=== PATIENT | male | born 1965 | race Caucasian/White ===

== ENCOUNTER 2022-12-26 23:13 | Emergency (ER) | payer OTHER, SELFPAY ==
[2022-12-26 23:20] VITALS: BP 180/100; PULSE 78; RESP 20; TEMP 36.7; O2SAT 99; BMI 32.5
--- NOTE | 2022-12-27 00:03 | ED.GENADULT ---
HPI - General Adult General Time Seen by Provider: 00:03 Date Seen: 12/27/22 Chief complaint: Lower Extremity Swelling Stated complaint: Left Foot Swelling, pain, redness Time Seen by Provider: 12/26/22 23:22 Source: patient Mode of arrival: ambulatory Limitations: no limitations History of Present Illness HPI narrative: 57-year-old male who comes in today with left foot pain. Patient noted some pain on the back of the left foot for the last couple of days. He initially thought this might be related to some back problems that and lumbar radiculopathy. Denies fever, chills, nausea, vomiting. Has not been taking anything for this. He was seen by Orthopedics today for his back pain and prescribed steroid which is not yet started. Had a fall couple weeks ago but does not feel that this is related to the fall. Related Data Home Medications Medication Instructions Recorded Confirmed citalopram 20 mg tablet 20 mg PO DAILY 12/26/22 12/26/22 omeprazole 20 mg capsule,delayed 20 mg PO DAILY 12/26/22 12/26/22 release tramadol 50 mg tablet 50 mg PO Q6H PRN pain 12/26/22 12/26/22 Allergies Allergy/AdvReac Type Severity Reaction Status Date / Time No Known Drug Allergies Allergy Verified 12/26/22 23:24 Review of Systems Status of ROS: Reports: 10 or more systems reviewed and unremarkable except as noted in History and below [facility] Medical History (Updated 12/27/22 @ 00:11 by Sandeep Marlow MD) Anxiety Surgical History (Updated 12/27/22 @ 00:00 by Agustin Sommers RN) H/O gastric sleeve Social History Smoking Status: Never smoker Do you use any of these nicotine containing products: None Second hand tobacco smoke exposure: No How often do you have a drink containing alcohol: never How often do you have six or more drinks on one occasion: Never AUDIT-C Alcohol total score: 0 Non-prescribed substance use: denies use Exam Narrative: Exam Narrative: General: well nourished , NAD Head: Atraumatic and normocephalic ENT: External ears and external nose are normal Eyes: Conjunctiva clear, pupils are equal reactive, external ocular motions are intact Neck: Full spontaneous range of motion of the neck Lungs: No respiratory distress Musculoskeletal: Tenderness and mild swelling on the dorsum of the left foot overlying the 1st metatarsal. Mild redness of the great toe along the nail with no marked tenderness or drainage. Tenderness extends along the great toe extensor to the ankle. Marked pain with resisted great toe extension or passive ankle plantar flexion. Neurologic: No gross focal neurologic deficits Skin: No rashes Psych: Mood and affect are appropriate Const: Vital Signs, click to edit/add: Vital Signs - 24 hr 12/26/22 23:20 Temperature 98.0 F Pulse Rate [Right Pulse Oximeter] 78 Respiratory Rate 20 Blood Pressure [Ri ght Upper Arm] 180/100 H Pulse Oximetry 99 Oxygen Delivery Me thod Room Air Course Course Hospital Course: Patient seen examined, prior records reviewed. Patient presents with left foot pain. Pain is on the dorsum of the foot medially with marked tenderness along the extensor hallucis longus tendon. No redness or warmth to suggest infectious tenosynovitis. No swelling, redness, warmth, or pain with passive movement at the MTP joint to suggest gout/crystal arthropathy or septic arthritis. There is some slight redness and tenderness along the medial distal nail but no diya paronychia. Given pain along with tendon and pain with passive ankle flexion strict in the tendon, and with resisted great toe dorsiflexion, symptoms are most consistent with tendinitis of the extensor hallucis longus. Patient will be placed in a walking boot. He is starting a steroid for his back and that should help this inflammation as well. Follow-up with primary care next week. Vital Signs Vital signs: Initial Vital Signs Temperature 98.0 F 12/26/22 23:20 Temperature Source Temporal Artery Scan 12/26/22 23:20 Pulse Rate 78 12/26/22 23:20 Respiratory Rate 20 12/26/22 23:20 Blood Pressure 180/100 H 12/26/22 23:20 Blood Pressure Mean 126 12/26/22 23:20 Blood Pressure Position Sitting 12/26/22 23:20 Pulse Oximetry 99 12/26/22 23:20 Oxygen Delivery Method 12/26/22 23:20 Vital Signs Temperature 98.0 F 12/26/22 23:20 Pulse Rate 78 12/26/22 23:20 Respiratory Rate 20 12/26/22 23:20 Blood Pressure 180/100 H 12/26/22 23:20 Pulse Oximetry 99 12/26/22 23:20 Oxygen Delivery Method 12/26/22 23:20 Temperature 98.0 F 12/26/22 23:20 Pulse Rate 78 12/26/22 23:20 Respiratory Rate 20 12/26/22 23:20 Blood Pressure 180/100 H 12/26/22 23:20 Pulse Oximetry 99 12/26/22 23:20 Oxygen Delivery Method 12/26/22 23:20 Medical Decision Making Medical Records Medical records reviewed: Yes I reviewed the patient's medical records Lab Data Lab results reviewed: Yes I reviewed the patient's lab results Discharge Plan Discharge Clinical Impression: Tenosynovitis of extensor hallucis longus tendon Patient Disposition: Home, Self-Care Condition: Stable Instructions: Tenosynovitis (ED) Additional Instructions: Take Tylenol and ibuprofen as needed for pain. Wear walking boot when up and around, crutches and weight-bearing as tolerated. Follow-up with your regular doctor next week. Activity Level: Weight Bearing as Tolerated Discharge Diet: Regular Prescriptions: No Action tramadol 50 mg tablet 50 mg PO Q6H PRN (Reason: pain) citalopram 20 mg tablet 20 mg PO DAILY omeprazole 20 mg capsule,delayed release(DR/EC) 20 mg PO DAILY Follow Up/Referrals: Provider,Not a Local [Primary Care Provider] - Stand Alone Forms: [employer] Info Instructions
[2022-12-27 00:30] VITALS: BP 174/85; PULSE 74; RESP 20; TEMP 36.7; O2SAT 99
[2022-12-27 00:36] VITALS: BP 174/85; PULSE 74; RESP 20; TEMP 36.7
== END 2022-12-27 00:36 | disposition home or self-care (01) ==
LOC: ED 12-27 00:22
PROVIDERS: Emergency Provider Family Medicine; PCP Family Medicine
DX: M65.9 Synovitis and tenosynovitis, unspecified (principal)
CPT/HCPCS: 29505; 99283